=== PATIENT | female | born 1990 | race Caucasian/White ===

== ENCOUNTER 2023-05-04 14:42 | Outpatient (CLI) | payer BC, SELFPAY | END 2023-05-04 14:43 | disposition home or self-care (01) | LOC: LKVREF 14:44 | PROVIDERS: PCP Family Medicine; Visit Provider Otolaryngology | DX: Z00.00 Encounter for general adult medical examination without abnormal findings (principal); R20.9 Unspecified disturbances of skin sensation; R23.1 Pallor | CPT/HCPCS: 84443 ==

== ENCOUNTER 2023-05-10 08:49 | Outpatient (CLI) | payer BC, SELFPAY | END 2023-05-10 08:50 | disposition home or self-care (01) | PROVIDERS: PCP Family Medicine; Visit Provider Family Medicine | DX: Z00.00 Encounter for general adult medical examination without abnormal findings (principal); E78.5 Hyperlipidemia, unspecified; Z13.1 Encounter for screening for diabetes mellitus | CPT/HCPCS: 80053; 80061 ==

== ENCOUNTER 2023-05-13 14:57 | Outpatient (CLI) | payer BC, SELFPAY ==
--- NOTE | 2023-05-13 15:00 | CRLHL7_ITS ---
For Patients: As a result of the Century Cures Act, medical imaging exams and procedure reports are released immediately into your electronic medical record. You may view this report before your referring provider. If you have questions, please contact your health care provider. INDICATION: Chronic sinusitis. TECHNIQUE: Noncontrast CT images acquired through the paranasal sinuses. COMPARISON: None. FINDINGS: Air-fluid level and mucosal thickening severely opacifies the left maxillary sinus. Moderately severe mucosal thickening in the right maxillary sinus. The ethmoid infundibula are opacified. Severe opacification of the left frontal recess and moderately severe opacification of the left frontal sinus. Moderately severe opacification the right frontal recess and mild opacification of the right frontal sinus. Severe opacification of the anterior and posterior ethmoid air cells. Moderately severe right and [id number] left sphenoid sinus mucosal thickening. Aerated secretions within the right sphenoid sinus. The sphenoethmoidal recesses are opacified. There is 5 mm rightward nasal septal deviation. Partial opacification of the mid and superior nasal cavity bilaterally is nonspecific, though raises the possibility of underlying nasal cavity lesions. Trace opacification left mastoid air cells. Periapical lucency involving tooth #7. IMPRESSION: 1. Moderately severe opacification of the paranasal sinuses. Left maxillary sinus air-fluid level raises the possibility of acute sinusitis. The major sinus outflow tracts are opacified. 2. Partial opacification of the mid and superior nasal cavity bilaterally is nonspecific, though raises the possibility of underlying nasal cavity lesions. 3. Rightward nasal septal deviation. 4. Periapical lucency involving tooth #7. Please note that all CT scans at this facility use dose modulation, iterative reconstruction, and/or weight-based dosing when appropriate to reduce radiation dose to as low as reasonably achievable. Dictated by Juan Vazquez MD @ 05/14/2023 8:04:37 PM (Electronically Signed)
--- NOTE | 2023-05-13 16:00 | CRLHL7_ITS ---
For Patients: As a result of the Century Cures Act, medical imaging exams and procedure reports are released immediately into your electronic medical record. You may view this report before your referring provider. If you have questions, please contact your health care provider. INDICATION: Swelling of the right salivary gland. TECHNIQUE: Soft tissue ultrasound of the right parotid gland. Brief evaluation left parotid gland was obtained for comparison purposes. FINDINGS: No evidence for right parotid gland masses or abscess. The right parotid gland is slightly more prominent than the left. Although there is blood flow documented in the right parotid gland it does not appear to be increased. Acute inflammation of the parotid gland is not convincing demonstrated. IMPRESSION: Mild asymmetry of the right parotid gland relative to the left without masses. Dictated by Don Fernandez MD @ 05/14/2023 11:09:18 AM (Electronically Signed)
== END 2023-05-13 14:58 | disposition home or self-care (01) ==
LOC: CT 14:58
PROVIDERS: PCP Family Medicine; Visit Provider Otolaryngology
DX: K11.8 Other diseases of salivary glands (principal); J32.9 Chronic sinusitis, unspecified
CPT/HCPCS: 70486; 76536

== ENCOUNTER 2023-05-20 11:31 | Emergency (ER) | payer BC, SELFPAY ==
[2023-05-20 11:39] VITALS: BP 149/97; PULSE 75; RESP 18; TEMP 36.6; O2SAT 100; BMI 35.3
--- NOTE | 2023-05-20 12:09 | CRLHL7_ITS ---
For Patients: As a result of the Century Cures Act, medical imaging exams and procedure reports are released immediately into your electronic medical record. You may view this report before your referring provider. If you have questions, please contact your health care provider. INDICATION: Upper epigastric pain, constipation. TECHNIQUE: CT abdomen and pelvis acquired with 89 cc Isovue 370 IV contrast. COMPARISON: None. FINDINGS: Lower chest: Scattered atelectasis. Liver: Unremarkable. Normal in size and attenuation. No suspicious masses. Gallbladder and bile ducts: Unremarkable. No stones or inflammation. No biliary dilatation. Pancreas: Unremarkable. No mass or inflammation. Spleen: Unremarkable. Normal in size. No masses. Adrenal glands: Unremarkable. No nodules. Kidneys: Punctate nonobstructing left renal stone. No suspicious masses, hydronephrosis. GI tract: Moderate colonic stool burden. Normal in caliber. Very subtle mesenteric stranding about the gastric antrum/duodenum. Normal appendix. Vasculature: Abdominal aorta is normal in caliber. Mesenteric arteries are patent. Lymph nodes: No lymphadenopathy. Peritoneum/Abdominal Wall: Tiny hyperdensity adjacent to the spleen (series 2/image 29), possibly tiny splenule. No sign of mass or infiltration. No free air or significant free fluid. Pelvis: Unremarkable. Bones: Unremarkable for age. IMPRESSION: Very subtle mesenteric stranding of the gastric antrum/duodenum which could represent low grade gastritis/duodenitis in the appropriate clinical setting. Otherwise no acute intra-abdominal/pelvic abnormality. Moderate colonic stool burden. Please note that all CT scans at this facility use dose modulation, iterative reconstruction, and/or weight-based dosing when appropriate to reduce radiation dose to as low as reasonably achievable. Dictated by Abdi Alves MD @ 05/20/2023 2:28:33 PM (Electronically Signed)
--- NOTE | 2023-05-20 12:12 | ED.ABDPAIN ---
HPI - Abdominal Pain General Chief Complaint: Abdominal Pain Stated Complaint: gallbladder imaging Time Seen by Provider: 05/20/23 11:33 History of Present Illness HPI narrative: This 33-year-old female presented to clinic today because of upper epigastric abdominal pain into her back. She was sent here for further evaluation. The patient reports pain that began yesterday. She states the pain is crampy and gets intense and then almost completely dissipates. She does not report any vomiting or fever. She does not have dysuria symptoms. She does report some nausea when the pain is intense. A nurse reports shows that takes 3 or 4 drinks of alcohol daily. Related Data Home Medications Medication Instructions Recorded Confirmed albuterol sulfate 90 mcg/actuation 2 puff inhalation Q4H PRN 11/11/22 05/20/23 aerosol inhaler (Ventolin HFA) Previous Rx's Medication Instructions Recorded cetirizine 10 mg tablet 10 mg PO DAILY #90 tabs 04/29/23 fluticasone propionate 50 1 spray intranasal BID #16 grams 04/29/23 mcg/actuation nasal spray,suspension fluticasone 500 mcg-salmeterol 50 1 inh inhalation BID #180 ea 05/10/23 mcg/dose blistr powdr for inhalation (Advair Diskus) ipratropium 0.5 mg-albuterol 3 mg 3 ml inhalation QID PRN shortness 05/10/23 (2.5 mg base)/3 mL nebulization of breath or wheezing #180 mL soln montelukast 10 mg tablet 10 mg PO QHS #90 tabs 05/10/23 pantoprazole 20 mg tablet,delayed 20 mg PO DAILY #20 tabs 05/20/23 release (Protonix) Allergies Allergy/AdvReac Type Severity Reaction Status Date / Time hydrocodone [From Vicodin] Allergy Intermediate Hives Verified 05/20/23 13:10 ibuprofen Allergy Intermediate Asthma Verified 05/20/23 13:10 Flare-up Review of Systems Status of ROS Reports: 10 or more systems reviewed and unremarkable except as noted in History and below Narrative Constitutional: No fevers, no weight gain or loss. Eyes: No discharge. No vision changes. HENT: No congestion, no sore throat, no ear pain. Cardiovascular: No chest pain, no palpitations. Respiratory: No shortness of breath, no wheezes, no cough. Gastrointestinal: No vomiting, no diarrhea. Upper epigastric abdominal pain that radiates through to her back. Genitourinary: No dysuria, no hematuria. Musculoskeletal: Normal range of motion. Skin: No rashes, no pruritis. Neurological: No dizziness, weakness, sensory change, speech change. Endo/Heme/Allergies: No bruising or bleeding. No polydipsia. Pysch: no suicidality, no anxiety, no insomnia. All other systems reviewed and are negative. [facility] Medical History Plantar fasciitis ?M72.2 - Plantar fascial fibromatosis (ICD-10) Surgical History Status post ?Z98.891 - History of uterine scar from previous surgery (ICD-10) Family History Other Diabetes Lupus erythematosus Social History What is your current living situation?: I presently have a place to live Problems where you live: no known problems In the past 12 months, utilities in danger of being shut off: no In the past 12 mos, have been you worried that your food would run out before you had money to buy more?: never true In the past 12 mos, the food you bought just didn't last and you didn't have money to buy more?: never true Smoking Status: Never smoker Do you use any of these nicotine containing products: None Second hand tobacco smoke exposure: No How often do you have a drink containing alcohol: 4 or more times a week How many standard drinks containing alcohol do you have on a typical day: 3 or 4 How often do you have six or more drinks on one occasion: Weekly AUDIT-C Alcohol total score: 8 Non-prescribed substance use: denies use How often does anyone, including family, friends and others, physically hurt you: never How often does anyone, including family, friends and others, insult or talk down to you: never How often does anyone, including family, friends and others, threaten you with harm: never How often does anyone, including family, friends and others, scream or curse at you: rarely Little interest or pleasure in doing things: not at all Feeling down, depressed, or hopeless: not at all service: No Exam Narrative: Exam Narrative: Constitutional: Well-developed, well-nourished, no acute distress. HEENT: Normocephalic, atraumatic. Neck: Normal range of motion. Nontender. Supple. Heart: Regular. No murmurs. Normal rate. Intact distal pulses. Lungs: Clear to auscultation. No chest discomfort. No wheezes, rhonchi, or rales. Abdomen: Normal bowel sounds. Nontender at the time of my exam. No rebound tenderness. Genitalia: Deferred. Back: No midline tenderness. Normal range of motion. Extremities: Normal range of motion. No injury. Skin: Intact. No rash. Warm. No erythema or pallor. Neurologic: No altered sensation. No weakness. Alert and oriented. Psychiatric: No suicidality. No anxiety or depression. No insomnia. Nursing notes and vitals signs are reviewed. Const: Vital Signs, click to edit/add: Vital Signs - 24 hr 05/20/23 11:39 Temperature 97.8 F Pulse Rate [Pulse Oximeter] 75 Respiratory Rate 18 Blood Pressure [Ri ght Upper Arm] 149/97 H Pulse Oximetry 100 Oxygen Delivery Me thod Room Air Course Vital Signs Vital signs: Initial Vital Signs Temperature 97.8 F 05/20/23 11:39 Temperature Source Temporal Artery Scan 05/20/23 11:39 Pulse Rate 75 05/20/23 11:39 Pulse Rhythm Regular 05/20/23 11:39 Pulse Strength 3+ Normal 05/20/23 11:39 Respiratory Rate 18 05/20/23 11:39 Blood Pressure 149/97 H 05/20/23 11:39 Blood Pressure Mean 114 H 05/20/23 11:39 Blood Pressure Position Sitting 05/20/23 11:39 Pulse Oximetry 100 05/20/23 11:39 Oxygen Delivery Method Room Air 05/20/23 11:39 Vital Signs Temperature 97.8 F 05/20/23 11:39 Pulse Rate 75 05/20/23 11:39 Respiratory Rate 18 05/20/23 11:39 Blood Pressure 149/97 H 05/20/23 11:39 Pulse Oximetry 100 05/20/23 11:39 Oxygen Delivery Method Room Air 05/20/23 11:39 Temperature 97.8 F 05/20/23 11:39 Pulse Rate 75 05/20/23 11:39 Respiratory Rate 18 05/20/23 11:39 Blood Pressure 149/97 H 05/20/23 11:39 Pulse Oximetry 100 05/20/23 11:39 Oxygen Delivery Method Room Air 05/20/23 11:39 MDM - Abdominal Pain MDM Narrative Medical decision making narrative: This patient comes in reporting upper epigastric pain that comes and goes over the past day or so. She arrives with normal vital signs and her exam is rather normal without symptoms currently. I did use bedside ultrasound to evaluate her gallbladder. This returns with normal findings. An IV was then established and CT imaging of the abdomen and pelvis is acquired. Lab results and imaging results returned with no clear cause of the patient's pain. There are some subtle findings that may indicate a gastritis. The patient does report 3 or 4 drinks of alcohol daily. I stated that this may be contributing to her symptoms. Her liver enzymes and lipase level however in normal range. The patient did have some symptoms later on in her stay here so she did receive Maalox 15 mg orally, Toradol 15 mg intravenously, and Zofran 4 mg intravenously. She is okay to be discharged home. She did receive a prescription for Protonix. Lab Data Labs: Lab Results 05/20/23 Range/Units 12:35 WBC 11.83 H (4.50-11.00) K/uL RBC 4.62 (4.00-5.20) m/uL Hgb 13.6 (12.0-16.0) gm/dL Hct 40.3 (33.0-51.0) % MCV 87 (80-100) fL MCH 29 (26-34) pg MCHC 34 (32-36) gm/dL RDW Coeff of Tiana 12.9 (11.5-15.5) % Plt Count 273 (140-440) K/uL Neut % (Auto) 67.4 (42.0-72.0) % Lymph % (Auto) 20.1 (20-44) % [place] % (Auto) 5.3 (0.0-11.0) % Eos % (Auto) 6.0 (0.0-7.0) % Baso % (Auto) 0.3 (0.0-3.0) % Neut # (Auto) 8.00 H (1.7-7.0) K/uL Lymph # (Auto) 2.40 (0.90-2.90) K/uL [place] # (Auto) 0.60 (0.00-0.90) K/UL Eos # (Auto) 0.70 H (0.00-0.50) K/uL Baso # (Auto) 0.00 (0.00-0.30) K/uL Abs Immat Gran (auto) 0.10 (0.00-0.30) K/uL Imm/Tot Granulo (auto) 0.9 % Sodium 137 (135-149) mmol/L Potassium 3.6 (3.6-5.1) mmol/L Chloride 102 (96-114) mmol/L Carbon Dioxide 22 (20-32) mmol/L BUN 12 (5-24) mg/dL Creatinine 0.5 (0.5-1.5) mg/dL Estimated Creat Clear 112.80 Estimated GFR 125 ml/min Glucose 94 (60-115) mg/dL Calcium 9.4 (8.4-10.6) mg/dL Total Bilirubin 0.6 (0.1-1.5) mg/dL Direct Bilirubin 0.1 (0.0-0.5) mg/dL AST 26 (12-35) U/L ALT 21 (4-35) U/L Alkaline Phosphatase 63 (40-150) U/L Total Protein 8.1 (6.0-8.3) g/dL Albumin 4.6 (3.3-5.0) g/dL Lipase 58 (23-300) U/L Imaging Data CT scan - abdomen: Radiologist's impression: Very subtle mesenteric stranding of the gastric antrum/duodenum which could represent low grade gastritis/duodenitis in the appropriate clinical setting. Otherwise no acute intra-abdominal/pelvic abnormality. Moderate colonic stool burden. Discharge Plan Discharge Clinical Impression: Gastritis Patient Disposition: Home, Self-Care Condition: Stable Additional Instructions: Take medication as prescribed. Follow up with MD. consider endoscopy if not improving. Return if symptoms are worsening. Prescriptions: New pantoprazole [Protonix] 20 mg tablet,delayed release (DR/EC) 20 mg PO DAILY Qty: 20 2RF No Action ipratropium-albuterol 0.5 mg-3 mg(2.5 mg base)/3 mL solution for nebulization 3 ml inhalation QID PRN (Reason: shortness of breath or wheezing) Qty: 180 5RF montelukast 10 mg tablet 10 mg PO QHS Qty: 90 3RF fluticasone propion-salmeterol [Advair Diskus] 500-50 mcg/dose blister with device 1 inh inhalation BID Qty: 180 4RF albuterol sulfate [Ventolin HFA] 90 mcg/actuation HFA aerosol inhaler 2 puff inhalation Q4H PRN fluticasone propionate 50 mcg/actuation spray,suspension 1 spray intranasal BID Qty: 16 11RF Rx Instructions: administer into each nostril cetirizine 10 mg tablet 10 mg PO DAILY Qty: 90 3RF Follow Up/Referrals: Cipriano Hines MD [Primary Care Provider] - Stand Alone Forms: [facility] Info Inst[facility] Procedures Ultrasound Biliary exam #1: Anatomical areas examined: gallbladder, long and short axis Indications: RUQ/epigastric pain Impression: normal exam
[2023-05-20 12:54] LABS: Basophils Percent Auto 0.3 % (0.0-3.0); Hematocrit 40.3 % (33.0-51.0); Hemoglobin* 13.6 gm/dL (12.0-16.0); Immature Granulocytes Pct Auto 0.9 %; Lymphocytes Percent Auto 20.1 % (20-44); Mean Corpuscular HGB Conc 34 gm/dL (32-36); Mean Corpuscular Hemoglobin 29 pg (26-34); Mean Corpuscular Volume 87 fL (80-100); Monocytes Percent Auto 5.3 % (0.0-11.0); Neutrophils Percent Auto 67.4 % (42.0-72.0); Platelet Count* 273 K/uL (140-440); RDW Coefficient of Variation % 12.9 % (11.5-15.5); Red Blood Count 4.62 m/uL (4.00-5.20); White Blood Count* 11.83 K/uL (4.50-11.00)
[2023-05-20 12:59] LABS: Slide Review Reflex No
[2023-05-20 13:08] LABS: Albumin* 4.6 g/dL (3.3-5.0)
[2023-05-20 13:09] LABS: Chloride* 102 mmol/L (96-114); Potassium* 3.6 mmol/L (3.6-5.1); Sodium* 137 mmol/L (135-149)
[2023-05-20 13:11] LABS: Alanine Aminotransferase* 21 U/L (4-35); Alkaline Phosphatase* 63 U/L (40-150); Aspartate Amino Transferase* 26 U/L (12-35); Bilirubin Direct* 0.1 mg/dL (0.0-0.5); Bilirubin Total* 0.6 mg/dL (0.1-1.5); Lipase* 58 U/L (23-300); Total Protein* 8.1 g/dL (6.0-8.3)
[2023-05-20 13:12] LABS: Blood Urea Nitrogen* 12 mg/dL (5-24); Carbon Dioxide* 22 mmol/L (20-32); Creatinine* 0.5 mg/dL (0.5-1.5); Estimated Glomerular Filt Rate 125 ml/min; Glucose* 94 mg/dL (60-115)
[2023-05-20 13:13] LABS: Calcium* 9.4 mg/dL (8.4-10.6)
[2023-05-20] MEDS: ONDANSETRON 2 MG/ML inj 4 MG IVP (14:52)
[2023-05-20] MEDS: MAG HYDROX/ALUMINUM HYD/SIMETH 30 ML ORAL.SUSP 15 ML PO (14:52)
[2023-05-20] MEDS: KETOROLAC 15 MG/ML inj IVP (14:52)
== END 2023-05-20 15:04 | disposition home or self-care (01) ==
PROVIDERS: Emergency Provider Emergency Medicine Emergency Medical Services; PCP Family Medicine
DX: K29.70 Gastritis, unspecified, without bleeding (principal)
CPT/HCPCS: 36415; 74177; 76705; 80048; 80076; 83690; 85025; 96374; 96375; 99284; A9270; J1885; J2405; Q9967

== ENCOUNTER 2023-06-01 15:25 | Outpatient (CLI) | payer BC, SELFPAY ==
--- NOTE | 2023-06-01 15:30 | CRLHL7_ITS ---
For Patients: As a result of the 21st Century Cures Act, medical imaging exams and procedure reports are released immediately into your electronic medical record. You may view this report before your referring provider. If you have questions, please contact your health care provider. Indication: Parotid mass Technique: MRI soft tissue neck with and without contrast. Sagittal and coronal T1 weighted, axial T2 fat suppressed, diffusion, coronal STIR, and post-contrast axial and coronal T1 fat-suppressed sequences. 15 cc Dotarem IV contrast Comparison: Ultrasound and CT sinus 05/13/2023 Findings: There is no significant abnormality in the neck. No dominant mass, abscess, signal abnormality or focus of pathologic enhancement is demonstrated. There is no significant lymphadenopathy. All the major vascular structures demonstrate normal flow-related signal voids. The airway is widely patent. No mass, signal abnormality or pathologic enhancement is demonstrated in the nasopharynx, oral cavity, tongue or floor of mouth, oropharynx, hypopharynx or larynx. The retropharyngeal, prevertebral, parapharyngeal and media law faculty member spaces are normal in appearance. The thyroid, lacrimal and salivary glands are normal in size, signal, morphology and enhancement pattern. Minimally prominent retropharyngeal lymph nodes likely reactive in etiology. The signal arising from the marrow of the skull base and visualized spine is normal. The paraspinous muscles are symmetric and normal in size, signal and morphology. The cervical and upper thoracic spinal cord is normal in contour, calibre and signal. Visualized portions of the brain, the orbits and their contents are unremarkable. Moderate mucosal thickening in the maxillary sinuses and mild mucosal thickening in the sphenoid sinuses. Complete opacification of the frontal sinuses and ethmoid air cells. Air-fluid levels in the right sphenoid sinus and maxillary sinuses. The mastoid air cells are clear. No mass, signal abnormality or pathologic enhancement is demonstrated in the mediastinum, visualized pulmonary apices, supraclavicular fossae, superior sulci or visualized portions of the axillae. No pleural effusion is demonstrated. Impression: 1. No parotid mass. The salivary glands are symmetrical and normal in size and signal. 2. Complete opacification of the frontal sinuses and ethmoid air cells, moderate opacification of the sphenoid sinuses and maxillary sinuses. Air-fluid level in the maxillary sinuses and right sphenoid sinus. 3. Minimally prominent retropharyngeal lymph nodes likely reactive in etiology. Dictated by Arnulfo Naik MD @ 06/02/2023 2:21:04 PM (Electronically Signed)
== END 2023-06-01 15:26 | disposition home or self-care (01) ==
LOC: MRI 15:26
PROVIDERS: PCP Family Medicine; Visit Provider Otolaryngology
DX: K11.8 Other diseases of salivary glands (principal); J32.0 Chronic maxillary sinusitis
CPT/HCPCS: 70543; A9575

== ENCOUNTER 2023-06-13 05:45 | Emergency (ER) | payer BC, SELFPAY ==
[2023-06-13 05:54] VITALS: BP 157/89; PULSE 84; RESP 18; TEMP 36.9; O2SAT 99; BMI 35.2
--- NOTE | 2023-06-13 06:29 | ED.GENADULT ---
HPI - General Adult General Chief complaint: Extremity Pain/Injury, Lower Stated complaint: fell, R knee injury Time Seen by Provider: 06/13/23 05:53 History of Present Illness HPI narrative: CC: Right Knee Pain pt. did splits last night and hurt knee. unable to get ouit of bed this morning. pain radiates into butt. 33-year-old woman presenting to the emergency department with right leg pain appear. Describes an injury where she did [place] splits in a bouncy house with kids last night though with the right knee bent. Woke up this morning in terrible pain. Arrives on crutches. Pain seems to be about the medial thigh extending up toward the buttock, seat area. Any movement of the leg or knee this point causes tremendous pain. Related Data Home Medications Medication Instructions Recorded Confirmed albuterol sulfate 90 mcg/actuation 2 puff inhalation Q4H PRN 11/11/22 06/14/23 aerosol inhaler (Ventolin HFA) COVID-19 molecular test assay (ID #[id number] [email or web address] 06/14/23 06/14/23 NOW COVID-19 Test Kit) amoxicillin 500 mg tablet 500 mg PO BID 06/14/23 06/14/23 prednisone 10 mg tablet mg PO 06/14/23 06/14/23 prednisone 20 mg tablet 20 mg PO BID 06/14/23 06/14/23 Previous Rx's Medication Instructions Recorded cetirizine 10 mg tablet 10 mg PO DAILY #90 tabs 04/29/23 fluticasone propionate 50 1 spray intranasal BID #16 grams 04/29/23 mcg/actuation nasal spray,suspension fluticasone 500 mcg-salmeterol 50 1 inh inhalation BID #180 ea 05/10/23 mcg/dose blistr powdr for inhalation (Advair Diskus) ipratropium 0.5 mg-albuterol 3 mg 3 ml inhalation QID PRN shortness 05/10/23 (2.5 mg base)/3 mL nebulization of breath or wheezing #180 mL soln montelukast 10 mg tablet 10 mg PO QHS #90 tabs 05/10/23 pantoprazole 20 mg tablet,delayed 20 mg PO DAILY #20 tabs 05/20/23 release (Protonix) Allergies Allergy/AdvReac Type Severity Reaction Status Date / Time hydrocodone [From Vicodin] Allergy Intermediate Hives Verified 06/15/23 14:37 ibuprofen Allergy Intermediate Asthma Verified 06/15/23 14:37 Flare-up Review of Systems Status of ROS: Reports: 6 or more systems reviewed and unremarkable except as noted in History and below [facility] Medical History Plantar fasciitis ?M72.2 - Plantar fascial fibromatosis (ICD-10) Surgical History Status post ?Z98.891 - History of uterine scar from previous surgery (ICD-10) Family History Other Diabetes Lupus erythematosus Social History What is your current living situation?: I presently have a place to live Problems where you live: no known problems In the past 12 months, utilities in danger of being shut off: no In the past 12 mos, have been you worried that your food would run out before you had money to buy more?: never true In the past 12 mos, the food you bought just didn't last and you didn't have money to buy more?: never true Smoking Status: Never smoker Do you use any of these nicotine containing products: None Second hand tobacco smoke exposure: No How often do you have a drink containing alcohol: never How many standard drinks containing alcohol do you have on a typical day: 3 or 4 How often do you have six or more drinks on one occasion: Never AUDIT-C Alcohol total score: 1 Non-prescribed substance use: denies use How often does anyone, including family, friends and others, physically hurt you: never How often does anyone, including family, friends and others, insult or talk down to you: never How often does anyone, including family, friends and others, threaten you with harm: never How often does anyone, including family, friends and others, scream or curse at you: rarely Little interest or pleasure in doing things: not at all Feeling down, depressed, or hopeless: not at all service: No Exam Narrative: Exam Narrative: She is crying in pain. Skin is warm and dry. Exquisitely tender to palpation about the medial thigh and anterior knee. Mild swelling I think about the anterior knee. Also tender in the right buttock area more medially. In the right ischial area. I do not appreciate bruising or discrete areas of swelling. Patella is aligned properly I think. Knee is straight at this point. I do not appreciate defect to palpation of the hamstring tendons or anywhere along the musculature. Given degree of demonstrated pain though exam is limited. Const: Vital Signs, click to edit/add: Vital Signs - 24 hr 06/13/23 05:54 06/13/23 07:14 06/13/23 07:14 Temperature 98.5 F Pulse Rate [Right Pulse Oximeter] 84 99 Respiratory Rate 18 18 Blood Pressure [Ri ght Upper Arm] 157/89 H 135/91 H Pulse Oximetry 99 97 96 Oxygen Delivery Me thod Room Air Room Air Documenting provider has reviewed patient's vital signs: yes Course Vital Signs Vital signs: Initial Vital Signs Temperature 98.5 F 06/13/23 05:54 Temperature Source Temporal Artery Scan 06/13/23 05:54 Pulse Rate 84 06/13/23 05:54 Respiratory Rate 18 06/13/23 05:54 Blood Pressure 157/89 H 06/13/23 05:54 Blood Pressure Mean 111 H 06/13/23 05:54 Blood Pressure Position Supine 06/13/23 05:54 Pulse Oximetry 99 06/13/23 05:54 Oxygen Delivery Method Room Air 06/13/23 05:54 Vital Signs Temperature 98.5 F 06/13/23 05:54 Pulse Rate 84 06/13/23 05:54 Respiratory Rate 18 06/13/23 05:54 Blood Pressure 157/89 H 06/13/23 05:54 Pulse Oximetry 99 06/13/23 05:54 Oxygen Delivery Method Room Air 06/13/23 05:54 Temperature 98.5 F 06/13/23 05:54 Pulse Rate 99 06/13/23 07:14 Respiratory Rate 18 06/13/23 07:14 Blood Pressure 135/91 H 06/13/23 07:14 Pulse Oximetry 96 06/13/23 07:14 Oxygen Delivery Method Room Air 06/13/23 07:14 Medical Decision Making MDM Narrative Medical decision making narrative: May have subluxed patella in this process as well. There is an effusion here. Quite tender over the anterior aspect. Given mechanism and area of pain I would suspect at this point hamstring pull or strain. I would also like to evaluate though for potential avulsion from the pelvis. Noted mobilize though and maybe do further exam will need some pain medication. Given injection of Dilaudid and lorazepam. Needed another dose though of Dilaudid for imaging. X-rays three view of right knee and pelvis by my read look to be unremarkable for acute bony abnormality. Alignment normal. Radiology does note small knee effusion. I think will need some time to settle pain to do better exam. Will place knee immobilizer and only clinic follow-up See patient discharge plan Discharge Plan Discharge Clinical Impression: Pulled hamstring, Subluxation of patella Patient Disposition: Home w/ Parent or Adult Condition: Stable Instructions: Hamstring Injury (ED), Patellar Dislocation (ED), Knee Immobilizer (ED) Additional Instructions: Stay hydrated Consider applying ice packs to the back of your leg/thigh 3 times daily over the next few days. Wear the knee immobilizer to allow for mobility over this next week. Continue to crutch as needed. In a couple of days hopefully when things settle down, would be seen maybe in orthopedics phone number [phone] or Sports Medicine. See handout on hamstring injury Might also feel better to apply Bruce wraps to compress the thigh. Percocet and Flexeril from [facility] Can take up to 800 mg of ibuprofen or up to 1000 mg of acetaminophen per dose. Alternative to the ibuprofen can be up to 500 mg of naproxen 2 times daily. Remember that each tablet of Percocet contains 325 mg of acetaminophen. Prescriptions: No Action ipratropium-albuterol 0.5 mg-3 mg(2.5 mg base)/3 mL solution for nebulization 3 ml inhalation QID PRN (Reason: shortness of breath or wheezing) Qty: 180 5RF montelukast 10 mg tablet 10 mg PO QHS Qty: 90 3RF fluticasone propion-salmeterol [Advair Diskus] 500-50 mcg/dose blister with device 1 inh inhalation BID Qty: 180 4RF prednisone 10 mg tablet PO amoxicillin 500 mg tablet 500 mg PO BID (DME) ID NOW COVID-19 Test Kit Kit See Rx Instructions .ROUTE ONCE Qty: 1 Rx Instructions: As directed prednisone 20 mg tablet 20 mg PO BID pantoprazole [Protonix] 20 mg tablet,delayed release (DR/EC) 20 mg PO DAILY Qty: 20 2RF albuterol sulfate [Ventolin HFA] 90 mcg/actuation HFA aerosol inhaler 2 puff inhalation Q4H PRN fluticasone propionate 50 mcg/actuation spray,suspension 1 spray intranasal BID Qty: 16 11RF Rx Instructions: administer into each nostril cetirizine 10 mg tablet 10 mg PO DAILY Qty: 90 3RF Follow Up/Referrals: Cipriano Hines MD [Primary Care Provider] - Stand Alone Forms: [employer] Info Instructions
--- NOTE | 2023-06-13 06:34 | CRLHL7_ITS ---
For Patients: As a result of the Cures Act, medical imaging exams and procedure reports are released immediately into your electronic medical record. You may view this report before your referring provider. If you have questions, please contact your health care provider. Indication: FALL Technique: Pelvis 1 view. Comparison: None. Findings: Alignment is normal. No fractures or bone lesions. No significant degenerative arthrosis. Impression: No evidence of pelvis fracture. Dictated by Dimitri Cardozo MD @ 06/13/2023 7:44:12 AM (Electronically Signed)
--- NOTE | 2023-06-13 06:34 | CRLHL7_ITS ---
For Patients: As a result of the Cures Act, medical imaging exams and procedure reports are released immediately into your electronic medical record. You may view this report before your referring provider. If you have questions, please contact your health care provider. Indication: Injury and pain. Technique: Right knee 3 views Comparison: None Impression: Small knee effusion. No evidence of fracture or traumatic malalignment. No significant asymmetric soft tissue swelling. Dictated by Dimitri Cardozo MD @ 06/13/2023 7:42:07 AM (Electronically Signed)
[2023-06-13] MEDS: LORazepam 2 MG/ML inj 0.5 MG IVP (06:49)
[2023-06-13] MEDS: HYDROmorphone 0.5 mg/0.5 ml inj IVP ×2 (06:51→07:39)
[2023-06-13 07:14] VITALS: BP 135/91; PULSE 99; RESP 18; O2SAT 96; O2SAT 97
--- NOTE | 2023-06-13 08:10 | ED.NURSE ---
needed Dilaudid for pain prior to moving her r knee for the knee immobilizer. has her own crutches. was given a note for her work -due to inability to drive, need to adjust her work schedule for the next 2 weeks.
== END 2023-06-13 08:15 | disposition home or self-care (01) ==
PROVIDERS: Emergency Provider Family Medicine; PCP Family Medicine
DX: S76.311A Strain of muscle, fascia and tendon of the posterior muscle group at thigh level, right thigh, initial encounter (principal); S83.001A Unspecified subluxation of right patella, initial encounter; X58.XXXA Exposure to other specified factors, initial encounter; Y93.49 Activity, other involving dancing and other rhythmic movements
CPT/HCPCS: 72170; 73560; 94761; 96374; 96375; 96376; 99284; J1170; J2060

== ENCOUNTER 2023-08-27 09:47 | Day surgery (SDC) | payer BC, SELFPAY ==
[2023-08-27] VITALS (11 sets, daily range): BP systolic 126–150; BP diastolic 75–102; PULSE 66–90; RESP 16–20; TEMP 36.3–36.7; O2SAT 95–99; BMI 37.3
[2023-08-27 10:10] LABS: Ur HCG Qualitative* Negative (Negative)
[2023-08-27] MEDS: LACTATED RINGERS 1000 ML 1,000 ML 100 ML IV (10:30)
[2023-08-27] MEDS: OXYMETAZOLINE 0.05% NASAL SPRAY 2 SPRAY NOSTRIL-B (10:30)
[2023-08-27] MEDS: SODIUM CHLORIDE 0.9 % (FLUSH) 10 ML SYRINGE IVF (10:33)
[2023-08-27] MEDS: COCAINE HCL 4 % 4 ML SOLUTION NOSTRIL-B (11:23)
[2023-08-27] MEDS: MUPIROCIN 1 GM PACKET 1 APPLIC TOPICAL (11:28)
[2023-08-27] MEDS: AYR SALINE NASAL GEL 1 APPLIC NOSTRIL-B (11:28)
[2023-08-27] MEDS: BUPIVACAINE 0.5 %/EPI 1:200K 30 ML INJECTION (11:28)
--- NOTE | 2023-08-27 12:11 | W.ANESCHARGE ---
Anesthesia Charges Start Date/Time Anesthesia Start Date: 08/27/23 Anesthesia Start Time: 11:01 Stop Date/Time Anesthesia Stop Date: 08/27/23 Anesthesia Stop Time: 12:10
--- NOTE | 2023-08-27 12:21 | W.ANESCHARGE ---
Anesthesia Charges Start Date/Time Anesthesia Start Date: 08/27/23 Anesthesia Start Time: 11:01 Stop Date/Time Anesthesia Stop Date: 08/27/23 Anesthesia Stop Time: 12:10
[2023-08-27] MEDS: fentaNYL 100 MCG/2 ML inj 50 MCG IVP (12:24)
--- NOTE | 2023-08-27 12:43 | W.PM.ENTPROC ---
Procedure Note Date of procedure: 08/27/23 Procedure: Preoperative diagnosis chronic bilateral ethmoid and maxillary rhinosinusitis, deviated septum, inferior turbinate hypertrophy, nasal obstruction Postoperative diagnosis same Procedure nasal septoplasty, submucous partial resection inferior turbinates, endoscopic bilateral complete ethmoidectomies and maxillary antrostomies with tissue removal. Image guidance was utilized. Under general trach anesthesia patient was prepped and draped in usual fashion and the nose decongested and injected. A right hemitransfixion incision was made left anterior and posterior tunnels were created. A vertical incision was made through the cartilage and a right posterior tunnel created. Posterior deflected portions of septal cartilage and bone were resected and a large piece was trimmed and returned to the posterior intraseptal space. The hemitransfixion was closed with 2 4-0 chromic sutures A stab incision was made in the anterior of the right inferior turbinate a tunnel created with a Ripley dissector. A conservative anterior submucous resection was performed with Tabitha forceps. Hemostasis was achieved with Coblation which was also used to cauterize intramurally along the inferior 10%. This was repeated on the left side in identical fashion. The right middle turbinate was medialized and there were polyps visible at the middle meatus. These were removed in the dissection carried from anterior to posterior throughout the ethmoid cells back to the face of the sphenoid removing a moderate amount of polypoid tissue. The inferior quarter of the uncinate was taken down and a 8 mm antrostomy created. Polypoid tissue was removed from this region and also from the floor of the maxillary sinus on the right side. The ethmoidectomy and maxillary antrostomy repeated on the left side in identical fashion with near identical findings. Positive pack was placed in the middle meatus on each side followed by a Merocel pack. Silastic stents were secured inside the septum with 3-0 nylon. The patient procedure well was taken recovery in satisfactory condition. Blood loss was less than 50 mL. Surgeon: Sav Hutchinson MD
[2023-08-27] MEDS: ACETAMINOPHEN 325 MG TABLET PO (12:49)
[2023-08-27] MEDS: OXYCODONE 5 MG TABLET PO (12:49)
== END 2023-08-27 13:43 | disposition home or self-care (01) ==
PROVIDERS: Anesthesiology; PCP Family Medicine; Visit Provider Otolaryngology
PROC: (CPT 31231; principal; 2023-08-27 11:00)
DX: J34.2 Deviated nasal septum (principal); J32.2 Chronic ethmoidal sinusitis; J32.0 Chronic maxillary sinusitis; J34.3 Hypertrophy of nasal turbinates; J34.89 Other specified disorders of nose and nasal sinuses
CPT/HCPCS: 30520; 30140; 31255; 31267; 00160; 81025; 88305; A9270; J0330; J1100; J2250; J2405; J2704; J3010; J3490; J7120

== ENCOUNTER 2025-08-23 10:45 | Outpatient (CLI) | payer BC, SELFPAY | END 2025-08-23 10:46 | disposition home or self-care (01) | PROVIDERS: PCP Family Medicine; Visit Provider Nurse Practitioner Family | DX: Z00.00 Encounter for general adult medical examination without abnormal findings (principal); Z13.0 Encounter for screening for diseases of the blood and blood-forming organs and certain disorders involving the immune mechanism | CPT/HCPCS: 80048; 80061; 85025 ==